=== PATIENT | female | born 1960 | race Caucasian/White ===

== ENCOUNTER → 2022-12-19 | Outpatient (CLI) | payer OTHER ==
--- NOTE | 2022-12-19 16:06 | Diagnostic Imaging Report ---
PROCEDURE: US Renal Bilateral. TECHNIQUE: Multiple real-time grayscale images were obtained over the kidneys in various projections bilaterally. INDICATION: Right renal colic Right kidney measures 10.6 x 5.0 x 4.9 cm. Left kidney measures 11.2 x 6.5 x 5.3 cm. There is no solid mass, calculus or hydronephrosis seen in either kidney. There are some small cortical cysts present on both kidneys. Urinary bladder is unremarkable. IMPRESSION: Unremarkable renal ultrasound. Dictated by: Dictated on workstation # [id number]
== END ==
LOC: RAD 10:35
PROVIDERS: ATTEND Hospitalist
DX: N23 Unspecified renal colic (principal)
CPT/HCPCS: 76770